=== PATIENT | male | born 1955 | race Caucasian/White ===

== ENCOUNTER 2019-03-14 00:12 | Emergency (ER) | payer OTHER ==
[~2019-03-14] VITALS: Ht 172.7 cm; Wt 74.1 kg
--- NOTE | 2019-03-14 00:23 | ERD ---
ER Documentation Chief Complaint Chief Complaint I want water and Advil HPI 63-year-old homeless gentleman who was just released from [facility]. The patient called 911 because he wants Advil. He describes body pain of unknown duration. Mild severity. He states that he would like Advil and some water. Patient denies any fevers chills chest pain or shortness of breath. No other complaints. He is also asking for shoes. ROS All systems reviewed and are negative except as per history of present illness. Allergies Allergies: Coded Allergies: No Known Allergy (Unverified , 03/14/19) FmHx Family History: No diabetes Physical Exam Vitals Vital Signs Date Temp Pulse Resp B/P (MAP) Pulse Ox O2 O2 Flow FiO2 Time Delivery Rate 03/14/19 98.6 81 18 128/98 96 00:26 (108) Physical Exam General: Disheveled but no acute distress Head: Normocephalic, atraumatic. Eyes: Pupils equally reactive, EOM intact ENT: Moist mucous membranes Neck: Supple, no lymphadenopathy Respiratory: Lungs clear bilaterally, no distress Cardiovascular: RRR, no murmurs, rubs, or gallops Abdominal: Soft, non-tender, non-distended, no peritoneal signs : Deferred MSK: No edema, no unilateral swelling, 5/5 strength Neurologic: Alert and oriented, moving all extremities, normal speech, no focal weakness, no cerebellar signs Skin: No rash Psych: Normal mood Results 24 hrs Current Medications Medications Dose Sig/Judy Start Time Status Last (Trade) Ordered Route PRN Stop Time Admin Dose Reason Admin Ibuprofen 800 mg ONCE ONCE 03/14/19 DC 03/14/19 (Motrin) PO 00:30 03/14/19 00:55 00:31 Procedures/MDM Patient is asking for Advil. He was offered Motrin. He states that he does not want Motrin. He is just asking for water at this point. He has nonspecific body pains. He is otherwise well-appearing, afebrile with no systemic signs or symptoms. Strongly suspect malingering in this patient. He is asking for food and shoes. These will be provided. Homeless discharge process initiated. Patient is not requesting outreach and education social worker resources at this time. Medical screening examination reveals no evidence of emergent medical condition The patient does not have an identifiable emergent medical condition that warrants inpatient hospitalization at this time. The patient is deemed safe for discharge with outpatient follow-up. We discussed follow up with the patient's primary care doctor within 24 to 48 hours as needed. We also discussed return to the emergency room for worsening symptoms or worsening condition. Outpatient referral: None required Discharge Medications: None required Departure Diagnosis: Primary Impression: Malingering Additional Impression: Homeless Condition: Good Patient Instructions: Medical Screening Exam, Nonurgent Referrals: [facility] YOU HAVE RECEIVED A MEDICAL SCREENING EXAM AND THE RESULTS INDICATE THAT YOU DO NOT HAVE A CONDITION THAT REQUIRES URGENT TREATMENT IN THE EMERGENCY DEPARTMENT. FURTHER EVALUATION AND TREATMENT OF YOUR CONDITION CAN WAIT UNTIL YOU ARE SEEN IN YOUR DOCTORS OFFICE WITHIN THE NEXT 1-2 DAYS. IT IS YOUR RESPONSIBILITY TO MAKE AN APPOINTMENT FOR FOLOW-UP CARE. IF YOU HAVE A PRIMARY DOCTOR --you should call your primary doctor and schedule an appointment IF YOU DO NOT HAVE A PRIMARY DOCTOR YOU CAN CALL OUR PHYSICIAN REFERRAL HOTLINE AT IF YOU CAN NOT AFFORD TO SEE A PHYSICIAN YOU CAN CHOSE FROM THE FOLLOWING [facility] [address] [facility] [address] [facility] [facility] [address] [facility] [address] [facility] [address] [facility] [facility] [address] [facility]. [facility] YOU HAVE RECEIVED A MEDICAL SCREENING EXAM AND THE RESULTS INDICATE THAT YOU DO NOT HAVE A CONDITION THAT REQUIRES URGENT TREATMENT IN THE EMERGENCY DEPARTMENT. FURTHER EVALUATION AND TREATMENT OF YOUR CONDITION CAN WAIT UNTIL YOU ARE SEEN IN YOUR DOCTORS OFFICE WITHIN THE NEXT 1-2 DAYS. IT IS YOUR RESPONSIBILITY TO MAKE AN APPOINTMENT FOR FOLOW-UP CARE. IF YOU HAVE A PRIMARY DOCTOR --you should call your primary doctor and schedule and appointment IF YOU DO NOT HAVE A PRIMARY DOCTOR YOU CAN CALL OUR PHYSICIAN REFERRAL HOTLINE AT . IF YOU CAN NOT AFFORD TO SEE A PHYSICIAN YOU CAN CHOSE FROM THE FOLLOWING [facility] INSTITUTIONS: [facility] [address] [place] [address] [facility] [address] [place] [address] [facility] [address] [place] [address] Additional Instructions: Call your primary care doctor TOMORROW for an appointment during the next 1 WEEK.Tell the office secretary that you were referred from this facility.See the doctor sooner or return here if your condition worsens before your appointment time. ANGEL VEGA MD Mar 14, 2019 00:23
[2019-03-14 00:26] VITALS: Ht 172.7 cm; Wt 74.1 kg
[2019-03-14] MEDS ORDERED: IBUPROFEN 800 MG TAB PO ONE (00:30)
[2019-03-14 01:04] VITALS: BP 130/81; PULSE 89; RESP 18
== END 2019-03-14 01:05 | disposition home or self-care (01) ==
LOC: E/R 00:12
DX: Z76.5 Malingerer [conscious simulation] (principal); R40.2142 Coma scale, eyes open, spontaneous, at arrival to emergency department; R40.2362 Coma scale, best motor response, obeys commands, at arrival to emergency department; R40.2252 Coma scale, best verbal response, oriented, at arrival to emergency department; Z59.0 Homelessness
CPT/HCPCS: 99282